=== PATIENT | male | born 1945 | race Caucasian/White ===

== ENCOUNTER 2017-04-18 18:52 | Emergency (ER) | payer MEDICARE ==
[~2017-04-18] VITALS: Ht 185.4 cm; Wt 81.6 kg
--- NOTE | ~2017-04-18 | CR141 ---
[facility] A Service of [facility] & [facility] RADIOLOGY TEXT RESULTS PATIENT: GEETHA MENDES LOCATION: CFTX : 47 UNIT #: [id number] AGE: [address]: BRIGHT POLLARD APRN SEX: M ORDER DR: [id number] [facility] [address] [place], [place] [address] [id number] MR#: [id number] Acc #: [id number] NAME: GEETHA MENDES : 1945 SEX: M STUDY DATE/TIME: 04/18/2017 19:07 UNIT: [facility] ROOM: STUDY DESCRIPTION: CR Hand Min 3 Views Lt Attending Physician: Bright Pollard Aprn Ordering Physician: Maegan Davis P.A.-C. Primary Care Physician: Donaldo Avelar D.O. MEDICAL IMAGING REPORT This report is preliminary unless electronic signature is present EXAM Left hand 04/18/2017 HISTORY 72-year-old male with left fifth finger pain after car door closed on hand today. COMPARISON None. FINDINGS 3 views of the left hand demonstrate a minimally comminuted, but nondisplaced spiral oblique fracture of the mid and distal shaft of the fifth proximal phalanx. No definite articular surface disruption. There is mild ulnar subluxation of the fifth middle phalanx in relation to the fifth proximal phalanx. This may be chronic in nature. Correlation with exam findings. Postsurgical changes from ORIF of the distal radius. 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 IMPRESSION 1. Minimally comminuted, but nondisplaced spiral oblique fracture of the mid and distal shaft of the fifth proximal phalanx. No definite articular surface disruption. 2. Mild ulnar subluxation of the fifth middle phalanx in relation to the proximal phalanx. This is of uncertain acuity and may be chronic. Correlation with exam findings. Dictated by... Marcellus Cornell M.D. THIS IS AN ELECTRONICALLY VERIFIED REPORT Marcellus Cornell M.D. at 04/19/2017 3:05 PM JLEONILA/df [facility]. [facility] A Service of [facility] & [facility] RADIOLOGY TEXT RESULTS PATIENT: GEETHA MENDES LOCATION: [facility] : 47 UNIT #: [id number] AGE: [address]: BRIGHT POLLADR APRN SEX: M ORDER DR: TD: 04/19/2017 11:00 JOB #: [id number] MEDICAL IMAGING REPORT Page 1 of 1 COPY
[~2017-04-18 18:52] MED LIST: ASPIRIN81 M2 PO; KEFLEX500 M1 PO; NO MEDICATIONS
== END 2017-04-18 19:45 ==
LOC: CFTX 18:52 → CED 18:52 → CFTX 19:23
DX: S62.667B Nondisplaced fracture of distal phalanx of left little finger, initial encounter for open fracture (principal); F17.210 Nicotine dependence, cigarettes, uncomplicated; Z23 Encounter for immunization; Z91.040 Latex allergy status; W23.0XXA Caught, crushed, jammed, or pinched between moving objects, initial encounter; Y92.009 Unspecified place in unspecified non-institutional (private) residence as the place of occurrence of the external cause
CPT/HCPCS: 73130; 90471; 90715; 99283